=== PATIENT | male | born 1955 | race Caucasian/White ===

== ENCOUNTER → 2019-06-27 | Outpatient (CLI) | payer OTHER ==
--- NOTE | 2019-06-27 14:25 | XR ---
EXAMINATION TYPE: XR orbit detect foreign body DATE OF EXAM: 06/27/2019 COMPARISON: NONE HISTORY: History of metallic body in both eyes. MRI clearance. TECHNIQUE: 3 image of the orbits were obtained. FINDINGS: Slight rightward nasal septal deviation. Mild mucosal thickening in the maxillary sinuses, right greater than left. Orbits are symmetric and unremarkable with no radiopaque metallic foreign jun dy seen. Osseous structures are grossly intact. Dental fillings are incidentally noted. IMPRESSION: No radiopaque orbital foreign body.
== END | disposition home or self-care (01) ==
LOC: RADXRMAIN 13:48
PROVIDERS: ATTEND Orthopaedic Surgery
DX: Z01.818 Encounter for other preprocedural examination (principal); M79.671 Pain in right foot
CPT/HCPCS: 70030

== ENCOUNTER → 2021-05-07 | Outpatient (CLI) | payer OTHER ==
--- NOTE | 2021-05-07 11:10 | XR ---
EXAMINATION TYPE: XR orbit detect foreign body DATE OF EXAM: 05/07/2021 COMPARISON: NONE HISTORY: Pre MRI. Pt has hx of metal in eyes. TECHNIQUE: 3 views of the orbits are submitted FINDINGS: No radiopaque foreign bodies are identified. Osseous structures are intact. Mild mucosal thickening r ight maxillary sinus. IMPRESSION: The patient is cleared for MRI.
== END ==
LOC: RADXRMAIN 10:34
PROVIDERS: ATTEND Physician Assistant
DX: Z18.10 Retained metal fragments, unspecified (principal)
CPT/HCPCS: 70030